=== PATIENT | female | born 1960 | race Caucasian/White ===

== ENCOUNTER 2016-11-12 09:41 | Emergency (ER) | payer MEDICAID, OTHER ==
[2016-11-12 10:09] LABS: ABSOLUTE NEUTROPHIL COUNT 5.2 K/mm3 (1.8-7.7); BASO % 0.3 % (0.2-1.0); EOS % 0.5 % (0.9-2.9); HEMATOCRIT 40.3 % (37.0-47.0); HEMOGLOBIN 14.4 gm/l (12.0-16.0); IMM NEUT% 0.3 % (0-1); LYMPH # 1.3 (1.0-4.8); LYMPH % 17.9 % (15-45); MEAN CELL VOLUME 94.4 fl (81.0-99.0); MEAN CORPUSCULAR HEMOGLOBIN 33.7 pg (27.0-31.0); MEAN CORPUSCULAR HGB CONC 35.7 g/dl (33.0-37.0); MEAN PLATELET VOLUME 10.2 fl (7.4-10.4); MONO # 0.7 (0.0-0.8); MONO % 9.8 % (4-12); NEUT % 71.2 % (43-75); PLATELET COUNT 159 K/mm3 (130-400)
[2016-11-12] MEDS ORDERED: SODIUM CHLORIDE 0.9% 1,000 ML ONE (10:24)
[2016-11-12] MEDS ORDERED: MAALOX/LIDO2%VISC/SIMETHICONE 40 ML BOT ONE (10:24)
[2016-11-12 10:26] LABS: ALB/GLOB RATIO 1.6 (>1.0); ALBUMIN 4.2 gm/dL (3.5-5.7); CALCIUM 9.7 mg/dL (8.6-10.3)
--- NOTE | 2016-11-12 10:39 | RAD ---
CHEST 2 VIEWS HISTORY: Chest pain x2 days. Frontal and lateral chest radiographs dated 11/12/2016. COMPARISON: None. FINDINGS: FOCAL AIRSPACE OPACITY: No gross airspace consolidation. PLEURAL EFFUSION: None. CARDIOMEDIASTINAL SILHOUETTE: Nonenlarged. PNEUMOTHORAX: None identified. OSSEOUS STRUCTURES: No grossly destructive lesions. IMPRESSION: No acute cardiopulmonary process noted.
--- NOTE | 2016-11-12 10:53 | CT ---
MAXILLOFACIAL CT HISTORY: Status post fall with left orbital swelling and bruising. No intravenous contrast administered contiguous axial images acquired through the maxillofacial structures. FINDINGS: MANDIBLE: Normal alignment of the temporomandibular joints. No displaced fracture identified. PTERYGOID PLATES: Grossly intact. ZYGOMATIC ARCHES: Grossly intact. NASAL BONES: Intact. NASAL SEPTUM: Rightward septal deviation with minor spurring, likely long-standing. PARANASAL SINUSES: No air-fluid levels. Minor mucosal thickening along the right maxillary sinus. VISIBLE TYMPANOMASTOID CAVITIES: Clear. FRACTURE: No displaced fracture identified. AIRWAY: Grossly patent. ORBITS: No evidence of lens dislocation. No evidence of retrobulbar hematoma. Asymmetric prominence of left-sided periorbital and paranasal soft tissues. VISIBLE INTRACRANIAL COMPARTMENT: No gross mass effect. DENTITION: Findings of maxillary dental caries and periodontal disease, periapical lesions associated with the left second premolar and right first molar. IMPRESSION: 1. Left-sided periorbital soft tissue swelling with no displaced fracture or retrobulbar hematoma noted. 2. Airway patent. 3. Dental caries and periodontal disease. Results were electronically transmitted to the electronic medical record at 11/12/2016 at 1049 hours.
[2016-11-12 11:25] LABS: SPECIFIC GRAVITY 1.015 (1.001-1.030); URINE APPEARANCE CLEAR; URINE BILIRUBIN NEGATIVE (NEGATIVE); URINE BLOOD 2+ (NEGATIVE); URINE COLOR YELLOW; URINE GLUCOSE (UA) NEGATIVE (NEGATIVE); URINE LEUKOCYTE ESTERASE NEGATIVE (NEGATIVE); URINE NITRITE NEGATIVE (NEGATIVE); URINE PROTEIN NEGATIVE (NEGATIVE); URINE UROBILINOGEN NORMAL (0-1 mg/dl)
[2016-11-12 11:39] LABS: AMPHETAMINES/METHAMPHETAMINES NEGATIVE (NEGATIVE); COCAINE NEGATIVE (NEGATIVE); MARIJUANA NEGATIVE (NEGATIVE); METHADONE NEGATIVE (NEGATIVE); OPIATES NEGATIVE (NEGATIVE); TRICYCLIC ANTIDEPRESSANTS NEGATIVE (NEGATIVE)
[2016-11-12 11:55] LABS: URINE BACTERIA RARE; URINE WBC RARE /hpf
== END 2016-11-12 12:10 | disposition home or self-care (01) ==
LOC: ED 09:41
DX: K21.9 Gastro-esophageal reflux disease without esophagitis (principal); E87.1 Hypo-osmolality and hyponatremia; S00.12XA Contusion of left eyelid and periocular area, initial encounter; I10 Essential (primary) hypertension; F17.210 Nicotine dependence, cigarettes, uncomplicated; W01.0XXA Fall on same level from slipping, tripping and stumbling without subsequent striking against object, initial encounter; Y92.9 Unspecified place or not applicable
CPT/HCPCS: 83690; 85025; 80305; 80053; 80307; 84484; 81001; 71020; 70486; 99283 ×2; 96360; 96361; 93005; A9270; J7030